=== PATIENT | female | born 1955 | race Caucasian/White ===

== ENCOUNTER → 2018-10-20 | Outpatient (CLI) | payer OTHER ==
[~2018-10-20] MED LIST: AMLO5 PO; ASPI325 PO; ASPI81CH PO; BUPR150T2 PO; CHOL10002 PO; CONEST.625 VAG; DIAZ2 PO; DIAZ5 PO; DOCU100 PO; DULO60 PO; GABA300 PO; HYDACE5 PO; HYDMOR4 PO; LEVSOD100 PO; LISHYD2012 PO; LOSA25 PO; LOSA50 PO; METO50ER PO; OMEP20ER PO; ONDA4ODT MM; OXYACE5T PO; PARO30 PO; RXHYDMOR2 PO; RXONDA4ODT MM; TOPI100 PO; TRAZ100 PO; Trazodone HCl300 MG PO; VENL150ER PO
[2018-10-20 17:22] LABS: Source, Urine Catheter
[2018-10-20 17:38] LABS: Appearance, Urine Hazy (Clear); Bilirubin, Urine Neg (Neg); Blood, Urine 2+ (Neg); Color, Urine Yellow (P-Yellow); Glucose Qualitative, Urine Neg (Neg); Ketones, Urine Neg (Neg); Leukocyte Esterase, Urine 3+ (Neg); Nitrite, Urine Neg (Neg); Protein, Urine 2+ (Neg); Specific Gravity, Urine 1.025 (1.003-1.022); Urobilinogen, Urine NORM (Normal)
[2018-10-20 18:16] LABS: White Blood Cells, Urine TNTC /hpf (0-5)
[2018-10-20 18:17] LABS: Bacteria Many /hpf; Calcium Oxalate Crystals Few /hpf; Squamous Epithelial Cells Few /hpf (Few)
[2018-10-22 14:07] LABS: HPV 16 Negative (Negative); HPV 18 Negative (Negative); HPV OTHER HR TYPES Negative (Negative)
== END | disposition home or self-care (01) ==
LOC: LAB SHORT 17:20 → LAB 17:20
PROVIDERS: Nurse Practitioner Women's Health
DX: Z12.72 Encounter for screening for malignant neoplasm of vagina (principal); N89.8 Other specified noninflammatory disorders of vagina; R30.0 Dysuria
CPT/HCPCS: 81001; 87086; 87147; 87624; G0123

== ENCOUNTER → 2018-11-24 | Outpatient (CLI) | payer OTHER | END | disposition home or self-care (01) | LOC: LAB SHORT 13:25 → LAB 13:25 | DX: N89.8 Other specified noninflammatory disorders of vagina (principal) | CPT/HCPCS: 87070; 87147; 87205 ==

== ENCOUNTER → 2019-05-16 | Outpatient (CLI) | payer OTHER ==
[2019-05-16 12:58] LABS: Source, Urine Catheter
[2019-05-16 13:27] LABS: Bilirubin, Urine Neg (Neg); Blood, Urine 4+ (Neg); Glucose Qualitative, Urine Neg (Neg); Ketones, Urine Neg (Neg); Leukocyte Esterase, Urine 3+ (Neg); Nitrite, Urine Neg (Neg); Protein, Urine 3+ (Neg); Urobilinogen, Urine NORM (Normal)
[2019-05-16 13:37] LABS: Appearance, Urine Cloudy (Clear); Color, Urine Yellow (P-Yellow)
[2019-05-16 13:39] LABS: Bacteria Many /hpf; Squamous Epithelial Cells Rare /hpf (Few); White Blood Cells, Urine TNTC /hpf (0-5)
== END | disposition home or self-care (01) ==
LOC: LAB 11:50 → LAB SHORT 11:50
PROVIDERS: Nurse Practitioner Women's Health
DX: N89.8 Other specified noninflammatory disorders of vagina (principal); R30.0 Dysuria
CPT/HCPCS: 81001; 87070; 87086; 87147; 87205

== ENCOUNTER → 2019-06-06 | Outpatient (CLI) | payer OTHER ==
[2019-06-06 12:36] LABS: Source, Urine Catheter
[2019-06-06 12:56] LABS: Bilirubin, Urine Neg (Neg); Blood, Urine 2+ (Neg); Glucose Qualitative, Urine Neg (Neg); Ketones, Urine Neg (Neg); Leukocyte Esterase, Urine 3+ (Neg); Nitrite, Urine Pos (Neg); Protein, Urine 2+ (Neg); Urobilinogen, Urine NORM (Normal)
[2019-06-06 13:23] LABS: Appearance, Urine Cloudy (Clear); Color, Urine Yellow (P-Yellow)
[2019-06-06 13:25] LABS: Bacteria Many /hpf; Squamous Epithelial Cells Rare /hpf (Few); White Blood Cells, Urine TNTC /hpf (0-5)
== END | disposition home or self-care (01) ==
LOC: LAB SHORT 12:36 → LAB 12:36
PROVIDERS: Nurse Practitioner Women's Health
DX: R30.0 Dysuria (principal); R82.998 Other abnormal findings in urine
CPT/HCPCS: 81001; 87077; 87086; 87186

== ENCOUNTER → 2019-07-15 | Outpatient (CLI) | payer OTHER ==
[2019-07-15 13:36] LABS: Source, Urine Catheter
[2019-07-15 15:08] LABS: Bilirubin, Urine Neg (Neg); Blood, Urine 1+ (Neg); Glucose Qualitative, Urine Neg (Neg); Ketones, Urine Neg (Neg); Leukocyte Esterase, Urine 2+ (Neg); Nitrite, Urine Neg (Neg); Protein, Urine Neg (Neg); Specific Gravity, Urine 1.015 (1.003-1.022); Urobilinogen, Urine NORM (Normal)
[2019-07-15 15:14] LABS: Appearance, Urine Hazy (Clear); Color, Urine Yellow (P-Yellow)
[2019-07-15 15:17] LABS: Bacteria Mod /hpf; Squamous Epithelial Cells Few /hpf (Few); White Blood Cells, Urine 25-50 /hpf (0-5)
== END | disposition home or self-care (01) ==
LOC: LAB 13:34 → LAB SHORT 13:34
PROVIDERS: Nurse Practitioner Women's Health
DX: N39.0 Urinary tract infection, site not specified (principal); N95.2 Postmenopausal atrophic vaginitis; N95.1 Menopausal and female climacteric states; R30.0 Dysuria
CPT/HCPCS: 81001; 87077; 87086; 87186

== ENCOUNTER 2020-08-03 06:08 | Day surgery (SDC) | payer OTHER ==
[~2020-08-03] VITALS: Ht 154.9 cm; Wt 97.1 kg
[~2020-08-03 06:08] MED LIST changes: +ABILIFY MYCITE5 M1 PO; +BRINTELLIX20 MG PO; +ESTRACE CREAM VAG; +EUTHYROX88 MCG PO; +METF500 PO; +METO25 PO; +SPIR25 PO; +TOPI50 PO; +Vitamin D2000 UNIT PO
[2020-08-03] MEDS ORDERED: OMEP20ER PO (07:10)
[2020-08-03] MEDS ORDERED: VENL150ER PO (07:11)
--- NOTE | 2020-08-03 08:22 | NUR ---
08/03/20 0822 Raj Hill [address] INJECTED BY DURING CHOLANGIOGRAM.
== END 2020-08-03 10:05 | disposition home or self-care (01) ==
LOC: ORSCSDS 06:08
DX: K80.10 Calculus of gallbladder with chronic cholecystitis without obstruction (principal); I10 Essential (primary) hypertension; E78.5 Hyperlipidemia, unspecified; E03.9 Hypothyroidism, unspecified; E11.40 Type 2 diabetes mellitus with diabetic neuropathy, unspecified; Z79.84 Long term (current) use of oral hypoglycemic drugs; E66.01 Morbid (severe) obesity due to excess calories; Z68.41 Body mass index [BMI] 40.0-44.9, adult; Z86.73 Personal history of transient ischemic attack (TIA), and cerebral infarction without residual deficits
CPT/HCPCS: 74300; 82947; 88304; A9270-GY; C1729; J0690; J0694; J1100; J1885; J2250; J2370; J2405; J2704; J3010; J7120

== ENCOUNTER → 2021-11-13 | Outpatient (CLI) | payer OTHER ==
[2021-11-13 13:47] LABS: Source, Urine Clean Catch
[2021-11-13 15:20] LABS: Appearance, Urine Clear (Clear); Bilirubin, Urine Neg (Neg); Blood, Urine Neg (Neg); Color, Urine Yellow (P-Yellow); Glucose Qualitative, Urine Neg (Neg); Ketones, Urine Neg (Neg); Leukocyte Esterase, Urine Neg (Neg); Nitrite, Urine Neg (Neg); Protein, Urine Neg (Neg); Specific Gravity, Urine 1.025 (1.003-1.022); Urobilinogen, Urine NORM (Normal)
== END | disposition home or self-care (01) ==
LOC: LAB 13:46 → LAB SHORT 13:46
PROVIDERS: Internal Medicine
DX: R30.0 Dysuria (principal)
CPT/HCPCS: 81003

== ENCOUNTER → 2021-12-06 | Outpatient (CLI) | payer OTHER ==
[2021-12-06 13:12] LABS: Source, Urine Clean Catch
[2021-12-06 15:24] LABS: Bilirubin, Urine Neg (Neg); Blood, Urine 1+ (Neg); Glucose Qualitative, Urine Neg (Neg); Ketones, Urine Neg (Neg); Leukocyte Esterase, Urine Neg (Neg); Nitrite, Urine Neg (Neg); Protein, Urine Neg (Neg); Urobilinogen, Urine NORM (Normal)
[2021-12-06 15:34] LABS: Appearance, Urine Clear (Clear); Color, Urine Pale Yellow (P-Yellow)
[2021-12-06 15:35] LABS: Bacteria Rare /hpf; Squamous Epithelial Cells Rare /hpf (Few); White Blood Cells, Urine 0-2 /hpf (0-5)
== END ==
LOC: LAB SHORT 13:10
PROVIDERS: Internal Medicine
DX: R10.9 Unspecified abdominal pain (principal)
CPT/HCPCS: 81001

== ENCOUNTER → 2022-03-27 | Outpatient (CLI) | payer OTHER ==
[2022-03-27 15:28] LABS: Source, Urine Clean Catch
[2022-03-27 17:23] LABS: Appearance, Urine Cloudy (Clear); Bilirubin, Urine Neg (Neg); Blood, Urine 2+ (Neg); Color, Urine Yellow (P-Yellow); Glucose Qualitative, Urine Neg (Neg); Ketones, Urine Neg (Neg); Leukocyte Esterase, Urine 3+ (Neg); Nitrite, Urine Neg (Neg); Protein, Urine 2+ (Neg); Urobilinogen, Urine NORM (Normal)
[2022-03-27 17:57] LABS: White Blood Cells, Urine 50-100 /hpf (0-5)
[2022-03-27 17:58] LABS: Bacteria Many /hpf; Squamous Epithelial Cells Few /hpf (Few)
== END | disposition home or self-care (01) ==
LOC: LAB SHORT 15:25 → LAB 15:25
PROVIDERS: Internal Medicine
DX: R30.0 Dysuria (principal)
CPT/HCPCS: 81001; 87086; 87147

== ENCOUNTER → 2022-09-30 | Outpatient (CLI) | payer OTHER ==
[2022-09-30 13:30] LABS: Source, Urine Clean Catch
[2022-09-30 16:36] LABS: Appearance, Urine Clear (Clear); Bilirubin, Urine Neg (Neg); Blood, Urine Neg (Neg); Color, Urine Yellow (P-Yellow); Glucose Qualitative, Urine Neg (Neg); Ketones, Urine Neg (Neg); Leukocyte Esterase, Urine Neg (Neg); Nitrite, Urine Neg (Neg); Protein, Urine Neg (Neg); Urobilinogen, Urine NORM (Normal)
== END | disposition home or self-care (01) ==
LOC: LAB SHORT 13:29 → LAB 13:29
PROVIDERS: Internal Medicine
DX: R30.0 Dysuria (principal)
CPT/HCPCS: 81003

== ENCOUNTER 2022-10-07 11:00 | Inpatient (IN) | payer OTHER ==
[~2022-10-07] VITALS: Ht 154.9 cm; Wt 100.2 kg
[2022-11-19 05:11] LABS: BASOPHILS ABSOLUTE AUTO 0.02 K/mm3 (0.00-0.23); BASOPHILS PERCENT AUTO 0 % (0-2); EOSINOPHILS PERCENT AUTO 0 % (0-6); Hematocrit 38.7 % (33.0-51.0); Hemoglobin 12.9 g/dL (11.5-16.0); IMMATURE GRAN ABSOLUTE AUTO 0.07 K/mm3 (0.00-0.10); IMMATURE GRAN PERCENT AUTO 1 % (0-1); LYMPHOCYTES ABSOLUTE AUTO 0.94 K/mm3 (0.84-5.20); LYMPHOCYTES PERCENT AUTO 7 % (21-46); MONOCYTES ABSOLUTE AUTO 1.06 K/mm3 (0.16-1.47); MONOCYTES PERCENT AUTO 7 % (4-13); Mean Corpuscular HGB 31.5 pg (26.0-34.0); Mean Corpuscular HGB Conc 33.3 g/dL (31.5-36.5); Mean Corpuscular Volume 94 fL (80-100); Mean Platelet Volume 11.3 fL (9.1-12.4); NEUTROPHILS ABSOLUTE AUTO 12.22 K/mm3 (1.96-9.15); NEUTROPHILS PERCENT AUTO 85 % (41-73); Platelet Count 274 K/mm3 (150-400); RDW Coefficient Variation 13.7 % (11.7-14.2); RDW Standard Deviation 47.7 fL (35.1-46.3); White Blood Cell Count 14.31 K/mm3 (4.00-11.30)
[2022-11-19 05:34] LABS: Bun/Creatinine Ratio 23.3 (12.0-20.0); Calcium, Blood 8.9 mg/dL (8.5-10.1); Creatinine, Blood 0.94 mg/dL (0.40-1.00); Potassium, Blood 4.2 mmol/L (3.5-5.5)
[2022-11-19] MEDS ORDERED: ASPI81CH PO (11:28)
[2022-11-19] MEDS ORDERED: Percocet 5-3251 EACH PO (11:29)
== END 2022-11-19 13:15 | disposition home or self-care (01) | DRG 483 ==
LOC: PRE IP 11:00 → SURS 11-18 10:20 → PRE IP 11-18 11:00 → SURS 11-18 20:13
PROVIDERS: ADMIT Orthopaedic Surgery
PROC: 0RRJ00Z Replacement of Right Shoulder Joint with Reverse Ball and Socket Synthetic Substitute, Open Approach (ICD-10-PCS; principal; 2022-11-18 12:30)
DX: M12.811 Other specific arthropathies, not elsewhere classified, right shoulder (principal); Z68.41 Body mass index [BMI] 40.0-44.9, adult; M75.41 Impingement syndrome of right shoulder; K21.9 Gastro-esophageal reflux disease without esophagitis; I10 Essential (primary) hypertension; E11.9 Type 2 diabetes mellitus without complications; E66.01 Morbid (severe) obesity due to excess calories; E03.9 Hypothyroidism, unspecified; Z87.891 Personal history of nicotine dependence; Z79.84 Long term (current) use of oral hypoglycemic drugs; Z79.890 Hormone replacement therapy; Z79.899 Other long term (current) drug therapy
CPT/HCPCS: 36415; 73030; 80048; 82947; 85025; 97110; 97116; 97161; 97165; 97530; 97535; A9270; C1713; C1776; J0690; J1100; J1815; J1885; J2370; J2405; J2704; J2765; J3010; J7120

== ENCOUNTER 2023-05-08 11:57 | Emergency (ER) | payer OTHER ==
[~2023-05-08] VITALS: Ht 154.9 cm; Wt 91.2 kg
[~2023-05-08 11:57] MED LIST changes: +Percocet 5-3251 EACH PO
[2023-05-08 11:59] VITALS: BP 153/94
[2023-05-08] MEDS ORDERED: BRINTELLIX10 MG PO (12:06)
[2023-05-08] MEDS ORDERED: SULFAMETHOXAZO1 EAC1 PO (12:06)
== END 2023-05-08 13:07 | disposition home or self-care (01) ==
LOC: ER 11:57
DX: L02.31 Cutaneous abscess of buttock (principal); Z88.1 Allergy status to other antibiotic agents; Z88.2 Allergy status to sulfonamides; Z88.8 Allergy status to other drugs, medicaments and biological substances; Z87.891 Personal history of nicotine dependence
CPT/HCPCS: 10060; 99283-25; A9270

== ENCOUNTER 2023-05-20 01:13 | Day surgery (SDC) | payer OTHER ==
[~2023-05-20 01:13] MED LIST changes: +BRINTELLIX10 MG PO; +SULFAMETHOXAZO1 EAC1 PO
== END 2023-05-20 23:19 | disposition home or self-care (01) ==
LOC: WOUND 01:13
DX: L02.31 Cutaneous abscess of buttock (principal); E11.628 Type 2 diabetes mellitus with other skin complications; I10 Essential (primary) hypertension; Z88.1 Allergy status to other antibiotic agents
CPT/HCPCS: G0463

== ENCOUNTER 2023-05-29 01:28 | Day surgery (SDC) | payer OTHER | END 2023-05-29 23:14 | disposition home or self-care (01) | LOC: WOUND 01:28 | DX: L02.31 Cutaneous abscess of buttock (principal); E11.628 Type 2 diabetes mellitus with other skin complications; I10 Essential (primary) hypertension | CPT/HCPCS: A9270; G0463 ==

== ENCOUNTER → 2023-06-02 | Outpatient (CLI) | payer OTHER ==
[2023-06-03 21:04] LABS: Adenovirus F 40/41 Not Detected (NOT DETECT); Astrovirus Not Detected (NOT DETECT); Campylobacter Sp Not Detected (NOT DETECT); Cryptosporidium Not Detected (NOT DETECT); Cyclospora Cayetanensis Not Detected (NOT DETECT); E. Coli O157 Not Detected (NOT DETECT); Entamoeba Histolytica Not Detected (NOT DETECT); Enteroaggregative E. coli-EAEC Not Detected (NOT DETECT); Enteropathogenic E. coli-EPEC Not Detected (NOT DETECT); Enterotoxigenic E. coli-ETEC Not Detected (NOT DETECT); Giardia Lamblia Not Detected (NOT DETECT); Norovirus GI/GII Not Detected (NOT DETECT); Plesiomonas Shigelloides Not Detected (NOT DETECT); Rotavirus A Not Detected (NOT DETECT); Salmonella Sp Not Detected (NOT DETECT); Sapovirus Not Detected (NOT DETECT); Shiga Toxin-prod E. coli-STEC Not Detected (NOT DETECT); Shigella/Enteroin E. coli-EIEC Not Detected (NOT DETECT); Vibrio Cholerae Not Detected (NOT DETECT); Vibrio Sp Not Detected (NOT DETECT); Yersinia Enterocolitica Not Detected (NOT DETECT)
== END | disposition home or self-care (01) ==
LOC: LAB 11:00 → LAB SHORT 11:00
PROVIDERS: Internal Medicine
DX: R19.7 Diarrhea, unspecified (principal)
CPT/HCPCS: 87507

== ENCOUNTER 2023-06-05 00:52 | Day surgery (SDC) | payer OTHER | END 2023-06-05 22:54 | disposition home or self-care (01) | LOC: WOUND 00:52 | DX: L02.31 Cutaneous abscess of buttock (principal); E11.628 Type 2 diabetes mellitus with other skin complications; I10 Essential (primary) hypertension | CPT/HCPCS: A9270; G0463 ==

== ENCOUNTER 2023-06-26 00:58 | Day surgery (SDC) | payer OTHER | END 2023-06-26 22:58 | disposition home or self-care (01) | LOC: WOUND 00:58 | DX: Z09 Encounter for follow-up examination after completed treatment for conditions other than malignant neoplasm (principal); I10 Essential (primary) hypertension; E11.9 Type 2 diabetes mellitus without complications | CPT/HCPCS: G0463 ==

== ENCOUNTER 2023-11-06 14:34 | Observation (INO) | payer MEDICARE ==
[~2023-11-06] VITALS: Ht 157.5 cm; Wt 82.0 kg
[2023-11-06 15:10] LABS: BASOPHILS ABSOLUTE AUTO 0.04 K/mm3 (0.00-0.23); BASOPHILS PERCENT AUTO 0 % (0-2); EOSINOPHILS PERCENT AUTO 0 % (0-6); Hematocrit 44.3 % (33.0-51.0); Hemoglobin 14.7 g/dL (11.5-16.0); IMMATURE GRAN ABSOLUTE AUTO 0.02 K/mm3 (0.00-0.10); IMMATURE GRAN PERCENT AUTO 0 % (0-1); LYMPHOCYTES PERCENT AUTO 20 % (21-46); MONOCYTES ABSOLUTE AUTO 0.57 K/mm3 (0.16-1.47); MONOCYTES PERCENT AUTO 6 % (4-13); Mean Corpuscular HGB 30.3 pg (26.0-34.0); Mean Corpuscular HGB Conc 33.2 g/dL (31.5-36.5); Mean Corpuscular Volume 91 fL (80-100); NEUTROPHILS PERCENT AUTO 73 % (41-73); Platelet Count 331 K/mm3 (150-400); RDW Coefficient Variation 13.9 % (11.7-14.2); RDW Standard Deviation 46.5 fL (35.1-46.3); Red Blood Cell Count 4.85 M/mm3 (3.80-5.20); White Blood Cell Count 9.33 K/mm3 (4.00-11.30)
[2023-11-06 15:33] LABS: Albumin, Blood 3.7 g/dL (3.4-5.0); Bilirubin, Total 0.4 mg/dL (0.1-1.0); Bun/Creatinine Ratio 20.6 (12.0-20.0); Calcium, Blood 9.6 mg/dL (8.5-10.1); Creatinine, Blood 0.87 mg/dL (0.40-1.00); Globulin, Blood 3.6 g/dL (2.2-4.0); Potassium, Blood 3.8 mmol/L (3.5-5.5); Total Protein, Blood 7.3 g/dL (6.4-8.2)
[2023-11-06] MEDS ORDERED: Aspir 8181 MG PO (18:01)
[2023-11-06] MEDS ORDERED: ATOR40TA PO (18:01)
[2023-11-06] MEDS ORDERED: CARV6.25 PO (18:02)
[2023-11-06] MEDS ORDERED: CLOP75 PO (18:02)
[2023-11-06] MEDS ORDERED: AMLO10 PO (18:03)
[2023-11-06] MEDS ORDERED: ABILIFY MYCITE5 M2 PO (18:03)
[2023-11-06] MEDS ORDERED: Isosorbide Mono30 MG PO (18:03)
[2023-11-06] MEDS ORDERED: GABA100 (18:03)
[2023-11-06] MEDS ORDERED: EUTHYROX88 MCG PO (18:04)
[2023-11-06] MEDS ORDERED: METF500C (18:04)
[2023-11-06] MEDS ORDERED: LOSA50 PO (18:04)
[2023-11-06] MEDS ORDERED: WEGOVY0.25 MG/0. SQ (18:05)
[2023-11-06] MEDS ORDERED: SPIR25 (18:05)
[2023-11-06] MEDS ORDERED: ONDA4ODT (18:05)
[2023-11-06] MEDS ORDERED: BRINTELLIX20 MG PO (18:06)
[2023-11-06] MEDS ORDERED: TRAZ100 PO (18:06)
[2023-11-06] MEDS ORDERED: TOPI100 (18:06)
[2023-11-06] MEDS ORDERED: VENL150ER PO (18:07)
[2023-11-06 18:33] LABS: International Normalized Ratio 0.98; Prothrombin Time Results 10.3 Sec (9.7-11.5)
[2023-11-06 18:54] VITALS: BP 140/70
--- NOTE | 2023-11-06 19:01 | NUR ---
PT ARRIVED TO UNIT AT APROX 1840 FROM ER. PT REPORTS THAT SHE HAD AN PR AND 3 STENTS PLACED ON 11/01/23. DEVOLOPED CP, NAUSEA, SOB AT APROX NOON TODAY THAT HAS SINCE RESOLVED WITH NO RECURRANCE SINCE ARRIVAL TO ER. VSS UPON ARRIVAL. TELE PLACED, PT SR RATE 74. PT SBA TO BED. PT GIVEN CALL LIGHT AND EDUCATED ON USE.
[2023-11-06 21:37] VITALS: BP 167/78
[2023-11-07] VITALS (14 sets, daily range): BP systolic 103–150; BP diastolic 51–82
[2023-11-07 03:15] LABS: BASOPHILS ABSOLUTE AUTO 0.03 K/mm3 (0.00-0.23); BASOPHILS PERCENT AUTO 0 % (0-2); EOSINOPHILS PERCENT AUTO 3 % (0-6); Hematocrit 40.3 % (33.0-51.0); Hemoglobin 13.3 g/dL (11.5-16.0); IMMATURE GRAN ABSOLUTE AUTO 0.02 K/mm3 (0.00-0.10); IMMATURE GRAN PERCENT AUTO 0 % (0-1); LYMPHOCYTES ABSOLUTE AUTO 2.19 K/mm3 (0.84-5.20); LYMPHOCYTES PERCENT AUTO 28 % (21-46); MONOCYTES ABSOLUTE AUTO 0.55 K/mm3 (0.16-1.47); MONOCYTES PERCENT AUTO 7 % (4-13); Mean Corpuscular Volume 91 fL (80-100); Mean Platelet Volume 10.8 fL (9.1-12.4); NEUTROPHILS ABSOLUTE AUTO 4.92 K/mm3 (1.96-9.15); NEUTROPHILS PERCENT AUTO 62 % (41-73); Platelet Count 267 K/mm3 (150-400); RDW Coefficient Variation 13.8 % (11.7-14.2); RDW Standard Deviation 45.9 fL (35.1-46.3); Red Blood Cell Count 4.44 M/mm3 (3.80-5.20); White Blood Cell Count 7.91 K/mm3 (4.00-11.30)
[2023-11-07 03:34] LABS: Albumin, Blood 3.2 g/dL (3.4-5.0); Bilirubin, Total 0.4 mg/dL (0.1-1.0); Bun/Creatinine Ratio 21.9 (12.0-20.0); Calcium, Blood 8.8 mg/dL (8.5-10.1); Creatinine, Blood 0.73 mg/dL (0.40-1.00); Globulin, Blood 3.2 g/dL (2.2-4.0); Potassium, Blood 3.3 mmol/L (3.5-5.5); Total Protein, Blood 6.4 g/dL (6.4-8.2)
--- NOTE | 2023-11-07 05:48 | NUR ---
SHIFT SUMMARY ASSUMED CARE OF PT AT 1900. PT IS A/OX4. HEART SOUNDS REGULAR. LUNG SOUNDS CLEAR. PT WAS A SBA TO BATHROOM. PT HAD SOME NEASEA/VOMITING AND THREW UP HER PILLS AT START OF SHIFT BUT WAS BETTER AFTER ZOFRAN. PT WASNT ABLE TO SLEEP DURING THE NOC.
--- NOTE | 2023-11-07 07:27 | NUR ---
ASSUMPTION OF CARE: PATIENT IS CHEST PAIN FREE STILL INFUSING HER FLUIDS THROUGH A NEW IV, ATTEMTPTED TO EDUCATED ABOUT DIABETES MANAGEMENT, DECREASED UNDERSTANDING OF LABS, AND PURPOSE. PATIENT ENDORSES SHE IS FOOD CONTROLLED BUT STILL TAKING METFORMIN. PATIENT BASELINE ANXIOUS, AWAITING CARDIOLOGY TO CONSULT, VSS. NO CONCERNS FROM THIS RN AT THIS TIME.
--- NOTE | 2023-11-07 13:21 | NUR ---
TR BAND RECOVERY: PATIENT HAS BEEN [place] APPROXIMATELY AN HOUR 3 CC'S OUT TO HELP WITH RECOVERY INCREASED PRESSURE WAS CAUSING NUMBNESS TINGLING, AND POOR CAP REFILL ESPECIALLY NOTED WITH ULNAR ARTERY DECOMPRESSION. PATIENT ONLY ENDORSES A MINOR HEADACHE WITH PAIN, NONE AT SITE, VSS, RUNNING PER ORDER. NO CONCERNS FROM THIS RN AT THIS TIME.
--- NOTE | 2023-11-07 16:52 | NUR ---
CARE OF PT ASSUMED AT 1630. LEFT WRIST/TR BAND SITE EXAMINED WITH PRIOR RN. BRUISE NOTED UNDER TR BAND WITH SMALL OF OF BLOOD UNDER BAND. 2CC AIR ADDED TO BALLOON BY PREVIOUS RN. HAND WARM AND PINK W GOOD CAP REFILL, ART PULSE PRESENT ABOVE AND BELOW TR BAND. AREA RECHECKED AT 1645, NO FURTHER OOZING NOTED, CIRC CHECK WNL. 1CC AIR REMOVED W/O ISSUES. PT STATES SHE IS LOOKING FORWARD TO DINNER, AT BEDSIDE.
--- NOTE | 2023-11-07 18:35 | NUR ---
7CC AIR REMOVED FROM BALLOON FROM 164 TO 1730 WITH NO FURTHER OOZING. BLEACH BOILER PULLER BROUGHT IN TO HELP ASSESS LEFT WRIST SEVERAL TIMES D/T BRUISING AND SLIGHT SWELLING TO LEFT PALM (THENAR MUSCLE AREA). CIRC CHECK REMAINED WNL. HAND PINK AND WARM W GOOD CAP REFILL. 2+ PULSE TO LEFT ART BELOW AND ABOVE TR BAND. BAND REMOVED AT 1730 AND OPSITE PLACED. AREA SOFT W/O HEMATOMA. BLEACH BOILER PULLER ASSESSED THIS AREA WELL AFTER TR BAND REMOVED. WRIST IMMOBILIZER PLACED. PT DENIES PAIN OR NUMBNESS TO HAND.
[2023-11-08 00:11] VITALS: BP 107/57
[2023-11-08 04:24] VITALS: BP 119/54
--- NOTE | 2023-11-08 04:29 | NUR ---
SHIFT SUMMARY. PT HAS BEEN DOING WELL THIS SHIFT, NO ACUTE CHANGES. VITALS HAVE BEEN STABLE, NO PAIN REPORTED. AFTER 2100 MED PASS AND SHIFT ASSESSMENT PT HAS BEEN ABLE TO SLEEP WELL THROUGH MOST OF SHIFT. ONLY AWAKES FOR CARE. IS EASILY AROUSABLE AND QUICKLY FALLS BACK TO SLEEP. BACKBOARD REMAINS IN PLACE OVER LEFT WRIST ANGIO SITE AND THERE HAVE BEEN NO ACUTE CHANGES AT THE SITE THIS SHIFT THUS FAR. TELE ON THROUGHOUT SHIFT, RUNNING SINUS RHYTHM WITH NO EVENTS THUS FAR. PT USES CALL LIGHT APPROPRIATELY FOR ASSISTANCE AND IS ABLE TO MAKE NEEDS KNOWN. CALL LIGHT LEFT WITHIN REACH. CONTINUING TO MONITOR.
[2023-11-08 08:15] VITALS: BP 106/57
== END 2023-11-08 11:27 | disposition home or self-care (01) ==
LOC: ER 14:34 → PCU 14:35
PROVIDERS: Emergency Medicine; Student in an Organized Health Care Education/Training Program; ADMIT Internal Medicine
DX: I21.4 Non-ST elevation (NSTEMI) myocardial infarction (principal); I25.10 Atherosclerotic heart disease of native coronary artery without angina pectoris; I10 Essential (primary) hypertension; E87.6 Hypokalemia; Z88.2 Allergy status to sulfonamides; Z88.1 Allergy status to other antibiotic agents; E03.9 Hypothyroidism, unspecified; E78.5 Hyperlipidemia, unspecified; Z79.4 Long term (current) use of insulin; E11.42 Type 2 diabetes mellitus with diabetic polyneuropathy; Z79.82 Long term (current) use of aspirin; K52.9 Noninfective gastroenteritis and colitis, unspecified
CPT/HCPCS: 36415; 71046; 76937; 80053; 82947; 83880; 84484; 85025; 85610; 85730; 93005; 93010; 93306; 93454; 96372; 96374; 96376; 99152; 99153; 99285-25; A9270; C1769; C1894; G0378; J1644; J1650; J2250; J2405; J3010; J7030; J7050; Q9967

== ENCOUNTER → 2023-12-16 | Outpatient (CLI) | payer MEDICARE, OTHER ==
[~2023-12-16] MED LIST changes: +ABILIFY MYCITE5 M2 PO; +AMLO10 PO; +ATOR40TA PO; +Aspir 8181 MG PO; +CARV6.25 PO; +CLOP75 PO; +GABA100; +Isosorbide Mono30 MG PO; +METF500C; +ONDA4ODT; +SPIR25; +TOPI100; +WEGOVY0.25 MG/0. SQ
== END | disposition home or self-care (01) ==
LOC: LAB SHORT 12:27 → LAB 12:27
DX: R10.13 Epigastric pain (principal)
CPT/HCPCS: 87338

== ENCOUNTER 2024-05-04 15:15 | Emergency (ER) | payer OTHER, MEDICARE ==
[~2024-05-04] VITALS: Ht 154.9 cm; Wt 85.7 kg
[2024-05-04 15:22] VITALS: BP 145/91
== END 2024-05-04 17:00 | disposition home or self-care (01) ==
LOC: ER 15:15
DX: S13.4XXA Sprain of ligaments of cervical spine, initial encounter (principal); G89.29 Other chronic pain; I10 Essential (primary) hypertension; V49.9XXA Car occupant (driver) (passenger) injured in unspecified traffic accident, initial encounter; Z87.891 Personal history of nicotine dependence; Z79.84 Long term (current) use of oral hypoglycemic drugs; Z79.899 Other long term (current) drug therapy; Z79.02 Long term (current) use of antithrombotics/antiplatelets; Z79.82 Long term (current) use of aspirin; Z88.2 Allergy status to sulfonamides; Z88.1 Allergy status to other antibiotic agents; Z88.8 Allergy status to other drugs, medicaments and biological substances
CPT/HCPCS: 70450

== ENCOUNTER 2024-10-03 16:24 | Observation (INO) | payer MEDICARE, OTHER ==
[~2024-10-03] VITALS: Ht 157.5 cm; Wt 89.4 kg
[~2024-10-03 16:24] MED LIST changes: -GABA100; +GABA100 PO; -METF500C; +METF500C PO
[2024-10-03 16:59] LABS: BASOPHILS ABSOLUTE AUTO 0.04 K/mm3 (0.00-0.23); BASOPHILS PERCENT AUTO 0 % (0-2); EOSINOPHILS PERCENT AUTO 0 % (0-6); Hematocrit 43.8 % (33.0-51.0); Hemoglobin 14.5 g/dL (11.5-16.0); IMMATURE GRAN ABSOLUTE AUTO 0.04 K/mm3 (0.00-0.10); IMMATURE GRAN PERCENT AUTO 0 % (0-1); LYMPHOCYTES ABSOLUTE AUTO 1.58 K/mm3 (0.84-5.20); LYMPHOCYTES PERCENT AUTO 14 % (21-46); MONOCYTES ABSOLUTE AUTO 0.49 K/mm3 (0.16-1.47); MONOCYTES PERCENT AUTO 5 % (4-13); Mean Corpuscular HGB 32.2 pg (26.0-34.0); Mean Corpuscular HGB Conc 33.1 g/dL (31.5-36.5); Mean Corpuscular Volume 97 fL (80-100); Mean Platelet Volume 9.8 fL (9.1-12.4); NEUTROPHILS ABSOLUTE AUTO 8.84 K/mm3 (1.96-9.15); NEUTROPHILS PERCENT AUTO 80 % (41-73); Platelet Count 292 K/mm3 (150-400); RDW Coefficient Variation 13.7 % (11.7-14.2); RDW Standard Deviation 48.8 fL (35.1-46.3); Red Blood Cell Count 4.51 M/mm3 (3.80-5.20); White Blood Cell Count 10.99 K/mm3 (4.00-11.30)
[2024-10-03 17:18] LABS: Albumin, Blood 3.7 g/dL (3.4-5.0); Albumin/Globulin Ratio 1.1 (0.8-1.8); Bilirubin, Total 0.4 mg/dL (0.1-1.0); Calcium, Blood 9.1 mg/dL (8.5-10.1); Creatinine, Blood 0.82 mg/dL (0.40-1.00); Globulin, Blood 3.5 g/dL (2.2-4.0); Total Protein, Blood 7.2 g/dL (6.4-8.2)
[2024-10-03] MEDS ORDERED: Famotidine 20 MG Tab PO ONE (22:25)
[2024-10-03] MEDS ORDERED: Mag Hydrox/AL Hydrox/Simeth 30 ML UDC PO ONE (22:25)
[2024-10-04] MEDS ORDERED: Nitroglycerin 0.4 MG SUBL SL ONE (02:13)
[2024-10-04] MEDS ORDERED: Aspirin 81 MG Chew PO SCH (02:13)
[2024-10-04] MEDS ORDERED: Clopidogrel Bisulfate 75 MG Tab PO SCH (02:14)
[2024-10-04 05:25] LABS: BASOPHILS ABSOLUTE AUTO 0.05 K/mm3 (0.00-0.23); BASOPHILS PERCENT AUTO 1 % (0-2); EOSINOPHILS PERCENT AUTO 0 % (0-6); Hematocrit 41.4 % (33.0-51.0); Hemoglobin 13.8 g/dL (11.5-16.0); IMMATURE GRAN ABSOLUTE AUTO 0.04 K/mm3 (0.00-0.10); IMMATURE GRAN PERCENT AUTO 0 % (0-1); LYMPHOCYTES ABSOLUTE AUTO 1.76 K/mm3 (0.84-5.20); LYMPHOCYTES PERCENT AUTO 18 % (21-46); MONOCYTES ABSOLUTE AUTO 0.73 K/mm3 (0.16-1.47); MONOCYTES PERCENT AUTO 8 % (4-13); Mean Corpuscular HGB Conc 33.3 g/dL (31.5-36.5); Mean Corpuscular Volume 96 fL (80-100); Mean Platelet Volume 9.8 fL (9.1-12.4); NEUTROPHILS ABSOLUTE AUTO 7.07 K/mm3 (1.96-9.15); NEUTROPHILS PERCENT AUTO 73 % (41-73); Platelet Count 268 K/mm3 (150-400); RDW Coefficient Variation 13.5 % (11.7-14.2); RDW Standard Deviation 48.5 fL (35.1-46.3); Red Blood Cell Count 4.31 M/mm3 (3.80-5.20); White Blood Cell Count 9.65 K/mm3 (4.00-11.30)
[2024-10-04 05:54] LABS: Albumin, Blood 3.5 g/dL (3.4-5.0); Albumin/Globulin Ratio 1.1 (0.8-1.8); Bilirubin, Total 0.4 mg/dL (0.1-1.0); Bun/Creatinine Ratio 25.5 (12.0-20.0); Calcium, Blood 9.6 mg/dL (8.5-10.1); Creatinine, Blood 0.78 mg/dL (0.40-1.00); Globulin, Blood 3.3 g/dL (2.2-4.0); Total Protein, Blood 6.8 g/dL (6.4-8.2)
[2024-10-04] MEDS ORDERED: Insulin Regular 100 UNIT/ML 10ML Vial SC SCH ×2 (06:00→11:30)
[2024-10-04 06:23] LABS: CHOL/HDL RATIO 2.6; Cholesterol 139 mg/dL (50-200); HDL Cholesterol 53 mg/dL (>39); LDL/HDL RATIO 1.3; Low Density Lipoprotein Chol 70 mg/dL (0-110); Triglycerides 79 mg/dL (30-160); Very Low Density Lipoprot Chol 15 mg/dL (6-32)
[2024-10-04] MEDS ORDERED: Acetaminophen 325 MG TABLET PO PRN (07:40)
[2024-10-04] MEDS ORDERED: Atorvastatin 40 MG Tab PO SCH (09:00)
[2024-10-04] MEDS ORDERED: Famotidine 20 MG Tab PO SCH (09:00)
[2024-10-04] MEDS ORDERED: Enoxaparin 40 MG/0.4 ML SYR SC SCH (09:00)
[2024-10-04 11:07] VITALS: BP 136/88
--- NOTE | 2024-10-04 11:17 | NUR ---
SPOKE WITH [facility] REGARDING STRESS TEST TOMORROW. SHE CAN EAT TODAY. NO CAFFEINE WITH BREAKFAST TOMORROW AND NPO EXCEPT WATER AFTER BREAKFAST ON 10/05/24. PT AWARE AND AGREEABLE TO PLAN.
--- NOTE | 2024-10-04 11:48 | NUR ---
ARRIVAL PT ARRIVED TO UNIT FROM ER VIA WHEELCHAIR. PT REPORTS SLIGHT DISCOMFORT TO CHEST WITH SLIGHT SOB THAT HAS BEEN OCCURING SINCE ARRIVAL TO ER. SHE STATES MUCH IMPROVED THAN HOW SHE FELT BEFORE COMING TO THE ER. PT ABLE TO STAND AND AMBULATE WELL, NO WEAKNESS NOTED. DENIES ANY PAIN OR OTHER COMPLAINTS. PLAN IS FOR SECOND PART OF HER NUCLEAR MEDICINE STRESS TEST TOMORROW. PT AGREEABLE. DENIES FURTHER NEEDS. CALL LIGHT PROVIDED.
[2024-10-04 14:48] VITALS: BP 140/54
--- NOTE | 2024-10-04 18:42 | NUR ---
NO ACUTE CHANGES SINCE ARRIVAL TO UNIT. PT IND WITH AMBULATION. PT AGREEABLE TO PLAN FOR STRESS TEST TOMORROW.
[2024-10-04 19:16] VITALS: BP 147/93
[2024-10-04] MEDS ORDERED: TraZODone HCl 50 MG Tab PO SCH (21:00)
[2024-10-05 05:19] VITALS: BP 148/67
--- NOTE | 2024-10-05 06:45 | NUR ---
SHIFT SUMMARY PT HAS RESTED T/O THE NIGHT, INDEPENDENT IN THE ROOM. TELE IN PLACE WITH NO CHANGES OVERNIGHT, NSR. PT DENIES CHEST PAIN, BUT REPORTS LINGERING "SORENESS". PT REPORTS THIS AM THAT THE SORNESS IS DISSIPATING RATES 12/05. .PT RESP E/U ON RA, VITALS STABLE. SKIN DRY. NO N/V. PT REPORTS HEADACHES RELIEVED WITH TYLENOL. PLAN IS FOR SECOND PORITION OF STRESS TEST TODAY. PLAN OF CARE UNCHANGED. BED IN LOWEST POSITION, CALL LIGHT WITHIN REACH.
[2024-10-05 07:18] VITALS: BP 145/82
[2024-10-05] MEDS ORDERED: Morphine Sulfate 4 MG/1 ML Injection IV ONE (13:10)
[2024-10-05] MEDS ORDERED: Regadenoson 0.4 MG/5 ML SYRINGE ONE (13:30)
[2024-10-05] MEDS ORDERED: Caffeine Citrated 60 MG/3 ML Vial ONE (13:30)
--- NOTE | 2024-10-05 14:18 | NUR ---
STRESS TEST COMPLETE AT THIS TIME
[2024-10-05 14:27] VITALS: BP 145/84
[2024-10-05] MEDS ORDERED: ACET325 PO (18:44)
--- NOTE | 2024-10-05 19:28 | NUR ---
DISCHARGE: DR. HERNANDEZ IN ROOM AT ABOUT 1730, PT OK FOR DC. DC PACKET PRINTED AND PT EDUCATED. IV DC'D WNL, TIP INTACT. TELE DC'D. PT LEFT UNIT VIA WHEELCHAIR WITH THIS RN AT 1815
== END 2024-10-05 19:30 | disposition home or self-care (01) ==
LOC: ER 16:24 → ERHOLD 16:25 → SURS 16:25
PROVIDERS: Physician Assistant; Student in an Organized Health Care Education/Training Program; ADMIT Internal Medicine
DX: R07.89 Other chest pain (principal); I25.10 Atherosclerotic heart disease of native coronary artery without angina pectoris; I25.2 Old myocardial infarction; Z95.5 Presence of coronary angioplasty implant and graft; I71.21 Aneurysm of the ascending aorta, without rupture; Q23.81 Bicuspid aortic valve; I12.9 Hypertensive chronic kidney disease with stage 1 through stage 4 chronic kidney disease, or unspecified chronic kidney disease; E11.22 Type 2 diabetes mellitus with diabetic chronic kidney disease; N18.9 Chronic kidney disease, unspecified; E03.9 Hypothyroidism, unspecified; E11.42 Type 2 diabetes mellitus with diabetic polyneuropathy; Z87.891 Personal history of nicotine dependence; Z88.2 Allergy status to sulfonamides; Z88.1 Allergy status to other antibiotic agents; Z88.8 Allergy status to other drugs, medicaments and biological substances; Z79.82 Long term (current) use of aspirin; Z79.890 Hormone replacement therapy; Z79.84 Long term (current) use of oral hypoglycemic drugs; Z79.899 Other long term (current) drug therapy
CPT/HCPCS: 36415; 71046; 71260; 78452; 80053; 80061; 82947; 83690; 84484; 85025; 85379; 93005; 93010; 93017; 96372; 96374; 99285-25; A9270; A9500; G0378; J0706; J1650; J1815; J2270; J2785; Q9967

== ENCOUNTER → 2024-11-23 | Outpatient (CLI) | payer MEDICARE, OTHER ==
[~2024-11-23] MED LIST changes: +ACET325 PO
[2024-11-23 12:45] LABS: Source, Urine Clean Catch
[2024-11-23 15:27] LABS: Appearance, Urine Cloudy (Clear); Bilirubin, Urine Neg (Neg); Blood, Urine Neg (Neg); Color, Urine Yellow (P-Yellow); Glucose Qualitative, Urine Neg (Neg); Ketones, Urine Neg (Neg); Leukocyte Esterase, Urine Neg (Neg); Nitrite, Urine Neg (Neg); Protein, Urine Neg (Neg); Urobilinogen, Urine NORM (Normal)
[2024-11-23 15:48] LABS: Amorphous Heavy (0-Heavy); Bacteria Few /hpf; Red Blood Cells, Urine 0-2 /hpf (0-2); Squamous Epithelial Cells Not Seen /hpf (Few); White Blood Cells, Urine 0-2 /hpf (0-5)
== END | disposition home or self-care (01) ==
LOC: LAB 12:44 → LAB SHORT 12:44
PROVIDERS: Internal Medicine
DX: R32 Unspecified urinary incontinence (principal); R30.0 Dysuria
CPT/HCPCS: 81001

== ENCOUNTER 2025-05-20 17:43 | Emergency (ER) | payer MEDICARE, OTHER ==
[~2025-05-20] VITALS: Ht 157.5 cm; Wt 95.2 kg
[2025-05-20 18:06] LABS: BASOPHILS ABSOLUTE AUTO 0.02 K/mm3 (0.00-0.23); BASOPHILS PERCENT AUTO 0 % (0-2); EOSINOPHILS ABSOLUTE AUTO 0.00 K/mm3 (0.00-0.68); EOSINOPHILS PERCENT AUTO 0 % (0-6); Hematocrit 44.5 % (33.0-51.0); Hemoglobin 14.4 g/dL (11.5-16.0); IMMATURE GRAN ABSOLUTE AUTO 0.08 K/mm3 (0.00-0.10); IMMATURE GRAN PERCENT AUTO 1 % (0-1); LYMPHOCYTES ABSOLUTE AUTO 1.37 K/mm3 (0.84-5.20); LYMPHOCYTES PERCENT AUTO 10 % (21-46); MONOCYTES ABSOLUTE AUTO 1.04 K/mm3 (0.16-1.47); MONOCYTES PERCENT AUTO 8 % (4-13); Mean Corpuscular HGB Conc 32.4 g/dL (31.5-36.5); Mean Corpuscular Volume 96 fL (80-100); NEUTROPHILS ABSOLUTE AUTO 10.74 K/mm3 (1.96-9.15); NEUTROPHILS PERCENT AUTO 81 % (41-73); NRBC ABSOLUTE 0.00 K/mm3 (0.00-0.02); NRBC Auto 0.0 /100 WBC (0.0-0.2); Platelet Count 286 K/mm3 (150-400); RDW Coefficient Variation 13.7 % (11.7-14.2); RDW Standard Deviation 47.9 fL (35.1-46.3)
[2025-05-20 18:24] LABS: Alanine Aminotransfer (ALT/SGP 21.0 U/L (12-78); Albumin, Blood 3.6 g/dL (3.4-5.0); Albumin/Globulin Ratio 1.1 (0.8-1.8); Anion Gap 9.0 mmol/L (3-11); Aspartate Aminotrans (AST/SGOT 13.0 U/L (12-37); Bilirubin, Total 0.5 mg/dL (0.1-1.0); Blood Urea Nitrogen 26.0 mg/dL (8-24); CO2, Blood 23.0 mmol/L (21-32); Calcium, Blood 8.8 mg/dL (8.5-10.1); Chloride, Blood 110.0 mmol/L (98-108); Creatinine, Blood 0.78 mg/dL (0.40-1.00); Globulin, Blood 3.3 g/dL (2.2-4.0); Glucose, Blood 122.0 mg/dL (70-99); Potassium, Blood 3.9 mmol/L (3.5-5.5); Sodium, Blood 138.0 mmol/L (136-145); Total Protein, Blood 6.9 g/dL (6.4-8.2)
[2025-05-20 21:22] VITALS: BP 159/83
== END 2025-05-20 21:22 | disposition home or self-care (01) ==
LOC: ER 17:43
PROVIDERS: Student in an Organized Health Care Education/Training Program
DX: R10.13 Epigastric pain (principal); I12.9 Hypertensive chronic kidney disease with stage 1 through stage 4 chronic kidney disease, or unspecified chronic kidney disease; E11.22 Type 2 diabetes mellitus with diabetic chronic kidney disease; N18.9 Chronic kidney disease, unspecified; E11.42 Type 2 diabetes mellitus with diabetic polyneuropathy; E03.9 Hypothyroidism, unspecified; I10 Essential (primary) hypertension; Z87.891 Personal history of nicotine dependence; Z79.02 Long term (current) use of antithrombotics/antiplatelets; Z79.84 Long term (current) use of oral hypoglycemic drugs; Z79.82 Long term (current) use of aspirin; Z79.899 Other long term (current) drug therapy; Z88.1 Allergy status to other antibiotic agents; Z88.2 Allergy status to sulfonamides; Z88.8 Allergy status to other drugs, medicaments and biological substances
CPT/HCPCS: 71046; 74177; 80053; 83690; 84484; 85025; 93005; 93010; 96374-59; 99285-25; Q9967

== ENCOUNTER → 2025-09-07 | Outpatient (CLI) | payer MEDICARE, OTHER ==
[2025-09-07 14:56] LABS: Source, Urine Clean Catch
[2025-09-07 18:43] LABS: Bilirubin, Urine Neg (Neg); Color, Urine Yellow (P-Yellow); Glucose Qualitative, Urine Neg (Neg); Ketones, Urine 1+ (Neg); Leukocyte Esterase, Urine 3+ (Neg); Protein, Urine 2+ (Neg); Specific Gravity, Urine 1.010 (1.003-1.022); Urobilinogen, Urine NORM (Normal)
[2025-09-07 19:10] LABS: Red Blood Cells, Urine 0-2 /hpf (0-2); White Blood Cells, Urine TNTC /hpf (0-5)
== END ==
LOC: LAB SHORT 14:54 → LAB 14:54
PROVIDERS: Internal Medicine
DX: R30.0 Dysuria (principal)
CPT/HCPCS: 81001; 87077; 87086; 87186

== ENCOUNTER 2025-09-23 11:47 | Emergency (ER) | payer MEDICARE, OTHER ==
[~2025-09-23] VITALS: Ht 152.4 cm; Wt 90.7 kg
[2025-09-23 12:01] VITALS: BP 150/87
[2025-09-23] MEDS ORDERED: METFORMIN HCL500 M3 PO (12:04)
[2025-09-23] MEDS ORDERED: Lidocaine 4% 1 Patch TOP ONE (13:30)
[2025-09-23] MEDS ORDERED: PAIN RELIEF PA1 EACH TOP (13:33)
[2025-09-23] MEDS ORDERED: Percocet 5-3251 EACH PO (13:33)
[2025-09-23] MEDS ORDERED: IBUP800 PO (13:33)
[2025-09-23] MEDS ORDERED: ONDA4ODT MM (15:18)
== END 2025-09-23 13:51 | disposition home or self-care (01) ==
LOC: ER 11:47
DX: S20.211A Contusion of right front wall of thorax, initial encounter (principal); E11.22 Type 2 diabetes mellitus with diabetic chronic kidney disease; N18.9 Chronic kidney disease, unspecified; E03.9 Hypothyroidism, unspecified; I12.9 Hypertensive chronic kidney disease with stage 1 through stage 4 chronic kidney disease, or unspecified chronic kidney disease; E11.40 Type 2 diabetes mellitus with diabetic neuropathy, unspecified; W06.XXXA Fall from bed, initial encounter; Z87.891 Personal history of nicotine dependence; Z79.02 Long term (current) use of antithrombotics/antiplatelets; Z79.84 Long term (current) use of oral hypoglycemic drugs; Z79.899 Other long term (current) drug therapy; Z88.2 Allergy status to sulfonamides; Z88.1 Allergy status to other antibiotic agents; Z88.8 Allergy status to other drugs, medicaments and biological substances
CPT/HCPCS: 71046; 99283-25; A9270